=== PATIENT | male | born 1985 | race Caucasian/White ===

== ENCOUNTER 2025-08-21 21:13 | Emergency (ER) | payer OTHER, SELFPAY ==
[2025-08-21 21:17] VITALS: BP 128/94
[2025-08-21 21:33] LABS: Hematocrit 42.1 % (39.0-52.0); Hemoglobin 14.1 g/dL (13.0-18.0); Mean Corp Hgb Conc. 33.5 g/dL (33.0-37.0); Mean Corpuscular Volume 87.9 fL (80.0-94.0); Nucleated Red Blood Cells % 0 % (-); Platelet Count 210 10^3/uL (130-400); Red Cell Dist. Width 13.2 % (11.5-14.5)
[2025-08-21 21:53] LABS: ALT (SGPT) 20 U/L (0-50); AST (SGOT) 27 U/L (17-59); Albumin 4.7 g/dl (3.5-5.0); Alkaline Phosphatase 47 U/L (38-126); Blood Urea Nitrogen 25 mg/dl (9-20); Calcium 9.7 mg/dl (8.4-10.2); Carbon Dioxide 30 mmol/L (22-30); Chloride 102 mmol/L (98-107); Glucose 101 mg/dl (70-99); Potassium 3.9 mmol/L (3.5-5.1); Sodium 138 mmol/L (135-145); Total Protein 7.5 g/dl (6.3-8.2); eGFR > 60.00
[2025-08-21 21:56] LABS: Troponin I < 0.012 ng/ml
[2025-08-21 22:43] VITALS: BP 117/87; BMI 22.5
[2025-08-21 23:00] VITALS: BP 115/82
--- NOTE | 2025-08-21 23:33 | ED.GENMED ---
History of Present Illness
General
Chief Complaint: Chest Pain
Source: patient
Exam Limitations: none
Time Seen by Provider: 08/21/25 22:59
Nursing documentation reviewed up to this point in time: agreed with
History of Present Illness
History of Present Illness:
39-year-old male with no past medical history presents to the ER today with concerns that the pressure in his chest that began approximately 2 days ago. Initially, the patient noticed a sensation while moving around at work, describing it as
deep-seated pressure similar to what he experienced with the previous COVID-19 infection. The pressure predominantly occurs in waves, but today the pain came on and was more persistent. He reports that the pain is often precipitated by movement or
positional changes such as bending down and standing back up. That sensation worsens with physical activity however it does persist at rest. Coming to pressure, patient reports shortness of breath and feeling like he is hard time catching his
breath at at times. He also reports that today, the pain radiated into the neck area but he reports that he currently does not have the pain in the neck. He denies any numbness or tingling in his upper extremities. The patient has no associated
fever, upper abdominal pain or burning his throat. He tried taking Tums for the symptoms which did not help. He has no personal history or family history of cardiac disease. He does not smoke. He denies any recent long distance travel. He
denies any redness or swelling in his legs. He denies any recent heavy lifting or trauma to the chest wall.
Past History
Past History
ED Past Medical History: None
Social History
Employment: Employed (Physical Therapist )
Review of Systems
Review of Systems
All Other Systems: ROS reviewed and negative except as documented in HPI and ROS
Phy Exam
Physical Exam
Physical Exam:
General: Patient is well appearing and in no acute distress; non-toxic
Skin: Warm and dry, no rashes or lesions
Head: Normocephalic, atraumatic
Eyes: Sclera non-icteric. EOMs intact.
Cardiac: Regular rate and rhythm, no murmurs, no tenderness to palpation of the external chest wall
Peripheral Vascular: No lower extremity swelling or edema. 2+ PT and DP pulses bilaterally. 2+ radial pulses bilaterally.
Pulm: Normal respiratory effort, no wheezers, rales, or rhonchi
Abdomen: No abdominal tenderness to palpation
Neuro: CN II-XII intact, no focal neurologic deficits.
Psychiatric: Appropriate mood and affect.
Scores
Heart Score for Chest Pain Patients
STEMI patient?: No
History: Slightly or Non-Suspicious
ECG: Normal
Age: </= 45 years
Risk Factors: No Risk Factors
Troponin: </= Normal Limit
Heart Score for Chest Pain Patients: 0
Heart Score Risk: 2.5% MACE over next 6 weeks
Course
Orders/Labs/Results
Orders:
Orders
08/21/25 00:20
Electrocardiogram (*1) Urgent
Reason for Study: Chest Pain
Troponin I Urgent
08/21/25 21:14
Electrocardiogram (*1) Urgent
Reason for Study: Chest Pain
EKG- Treatment ONCE
08/21/25 21:24
Complete Blood Count/With Diff Urgent
Comprehensive Metabolic Panel Urgent
Troponin I Urgent
08/21/25 23:28
CR Chest - 2 Views Urgent
Comment:
Reason For Exam: chest pain, shortness of breath
08/21/25 23:30
EKG- Treatment ONCE
Mag Hydrox/Al Hydrox/Simeth [Maalox] 30 ml Phenobarb/Hyoscy/Atropine/Scop [] 10 ml Viscous Lidocaine 2% [Xylocaine Viscous Cup] 10 ml PO NOW
08/21/25 23:43
D-Dimer Urgent
08/21/25 23:51
Phenobarb/Hyoscy/Atropine/Scop [] 10 ml .ROUTE .STK-MED ONE
08/21/25 23:52
Mag Hydrox/Al Hydrox/Simeth [Maalox] 30 ml .ROUTE .STK-MED ONE
Viscous Lidocaine 2% [Xylocaine Viscous Cup] 15 ml .ROUTE .STK-MED ONE
Abnormal Lab Results
08/21/25
21:24
Absolute Monos (auto) 0.8 H 10^3/uL
(0.1-0.6)
BUN 25 H mg/dl
(9-20)
Glucose 101 H mg/dl
(70-99)
Total Bilirubin 2.1 H mg/dl
(0.2-1.3)
08/21/25 21:24
08/21/25 21:24
Vital Signs
Initial and Last Documented VS:
Initial Vital Signs
Temp Pulse Resp BP Pulse Ox
97.9 F 66 16 128/94 98
08/21/25 21:17 08/21/25 21:17 08/21/25 21:17 08/21/25 21:17 08/21/25 21:17
Last Documented Vital Signs
Temp Pulse Resp BP Pulse Ox
97.9 F 48 16 110/86 99
08/21/25 21:17 08/22/25 01:45 08/22/25 01:45 08/22/25 01:00 08/22/25 01:45
MDM/Problems Addressed
Differential Diagnosis Includes:
ddx include ACS, costochondritis, PE, pleurisy, bronchitis, pneumothorax, GERD
MDM/Problems Addressed:
39-year-old male with no past medical history presents to the ER today with concerns that the pressure in his chest that began approximately 2 days ago. Initially, the patient noticed a sensation while moving around at work, describing it as
deep-seated pressure similar to what he experienced with the previous COVID-19 infection. The pressure predominantly occurs in waves, but today the pain came on and was more persistent. He tried TUMs which didn't help.
On physical exam, he is well-appearing in no acute distress. He has no reproducible chest pain. His vital signs are stable. He is radial pulses are equal bilaterally. He is not hypertensive. His heart is regular rate and rhythm with no murmurs.
His lungs are clear. He was sent for labs, his D-dimer is undetectable, his CBC is normal, his CMP shows mild elevated BUN to creatinine ratio. Troponin undetectable x 2. EKG nonischemic x 2. Patient was treated with GI cocktail which he
reports did decrease his pain temporarily. I suspect his discomfort likely related to costochondritis. I did offer anti-inflammatories however patient reports that he would rather go home and take Motrin. I did discuss establishing care with her
primary to check lipid panel and other management of cardiac risk factors. Patient expressed understanding. Did also discuss follow-up with chest pain hot line. Patient stable for discharge.
*Pulse Oximetry
SaO2: 99
Oxygen Mode of Delivery: Room air
Patient hypoxic: no
*Critical Care Note
Total Time (30-74mins, 75-104mins- exclusive of procedures): Not Applicable
ED Attending Note
-
Portions of this chart may have been created with voice recognition software.� Occasional wrong word or��sound alike� substitutions may have occurred due to the inherent limitations of voice recognition software.
Discharge Plan
Departure
Patient Disposition: Home (Routine Discharge)
Date of Disposition: 08/22/25
Time of Disposition: 01:39
Patient with high blood pressure during this ER visit?: Yes
Condition: Good
Discharge Problem:
Chest pain
Instructions: Chest Pain DCA Follow Up, BLOOD PRESSURE
Prescriptions:
No Action
oxycodone-acetaminophen 5 MG/325 MG tablet
1 tab PO Q4HPRN PRN (Reason: for pain) Qty: 10 0RF
Referrals:
Jose Juan Diaz DO [Active, Cardiology] - Call in 1-3 days for appt
NONE,* [Family Provider, Internal Medicine]
Hungarian,Jessica Aileen, DO [Active, Family Practice] - Call in 1-3 days for appt
Activity Restrictions/Additional Instructions:
Please continue monitoring your symptoms. I highly recommend establishing care with a primary care provider and checking lipid panel and routine blood work.
As discussed, your d-dimer was normal, troponins undetectable x2.
PLEASE RETURN TO THE ER SHOULD YOU DEVELOP AN ACUTE WORSENING OF YOUR SYMPTOMS, TROUBLE BREATHING, FAINTING SPELLS, DIZZINESS, FEVERS OR CHILLS, OR ANY OTHER SIGNS OR SYMPTOMS WORRISOME TO YOU.
Interventions
Interventions:
*Risk Screen - Suicide Last Done: 08/21/25 21:19
*General Assessment Last Done: 08/21/25 22:44
*Neglect/Abuse Screening Last Done: 08/21/25 21:19
*ED- Fall Risk Assessment Last Done: 08/21/25 22:44
*ED COVID-19 Vaccine History Last Done: 08/21/25 22:44
*ED Influenza Vaccine History Last Done: 08/21/25 22:44
*Nursing Disposition Last Done: 08/22/25 02:05
ED- Cardiac Assessment Last Done: 08/21/25 22:44
Discharge Date and Time
Discharge Date/Time: 08/22/25 02:05
Print Language: [email or web address]
[2025-08-21] MEDS: MAALOX 50 PO (23:55)
[2025-08-22] VITALS: BP 124/99
[2025-08-22 00:34] LABS: D-Dimer < 0.27 ug/mlFEU (0.00-0.50)
[2025-08-22 01:00] VITALS: BP 110/86
[2025-08-22 01:09] LABS: Troponin I < 0.012 ng/ml
== END 2025-08-22 02:05 | disposition home or self-care (01) ==
LOC: EMR 21:13
PROVIDERS: Emergency Medicine; Physician Assistant; EMERGENCY PHYSICIAN Student in an Organized Health Care Education/Training Program
DX: R07.9 Chest pain, unspecified (principal); R03.0 Elevated blood-pressure reading, without diagnosis of hypertension
CPT/HCPCS: 99284; 71046; 80053; 84484; 85025; 85379; 93005